=== PATIENT | female | born 1960 | race Caucasian/White ===

== ENCOUNTER → 2016-12-20 | Outpatient (CLI) | payer OTHER ==
[~2016-12-20] MED LIST: ASPI81TA28 PO; BUPRTAB51 PO; DIGO0.122 PO; FLUT0.15; LOSA1TAB PO; LSN5 PO; LSX20 PO; METO1TAB69 PO; POTA-335 PO; PRENTAB26 PO; WARF5TAB90 PO
[2016-12-20 15:37] LABS: URINE APPEARANCE CLEAR (CLEAR); URINE BILIRUBIN NEG (NEG); URINE COLOR YELLOW; URINE NITRITE NEG (NEG); URINE PH 5.5 (4.5-7.5); URINE SPECIFIC GRAVITY 1.005 (1.000-1.030); UROBILINOGEN NEG (NEG)
[2016-12-20 15:43] LABS: MANUAL MICROSCOPIC REQUIRED? NO; REVIEW REQ? NO
== END | disposition home or self-care (01) ==
LOC: C.LAB 14:08
PROVIDERS: ATTEND Physician Assistant
DX: R30.0 Dysuria (principal)

== ENCOUNTER → 2017-04-03 | Outpatient (CLI) | payer OTHER ==
--- NOTE | 2017-04-03 16:31 | DIAGNOSTIC IMAGING REPORT ---
(CHEST) THORAX WITHOUT CLINICAL HISTORY: 56 years-old Female presenting with PULMONARY NODULE. TECHNIQUE: Multidetector CT imaging of the chest was obtained without use of intravenous contrast. COMPARISON: 01/19/2016. FINDINGS: Tow Operator topogram demonstrates a left-sided pacer with lead to the right ventricular apex. Prosthetic tricuspid and mitral valves. Intact median sternotomy wires. On soft tissue windows, normal thyroid and thoracic inlet. No axillary lymphadenopathy. Stable mildly prominent mediastinal lymph nodes, the largest measuring up to 11 mm in short axis. Evaluation for hilar lymphadenopathy is limited without the use of intravenous contrast. Heart size normal. Trace coronary artery calcification. No pericardial or pleural effusion. Nodular thickening of the left adrenal gland unchanged. Left upper outer quadrant right breast mass also stable in appearance and size (series 2 image 24). On lung windows, mild apical predominant emphysema noted. Triangular solid 3-4 mm subpleural nodule in the posterior right lower lobe (series 2 image 34), which is unchanged from prior. Few scattered punctate nodules bilaterally. Additional punctate nodule in the anterior right upper lobe (series 2 image 14). Subpleural nodular opacity in the lingula likely scarring and stable from prior. No other focal infiltrate or pulmonary nodule. Airways patent. On bone windows, normal osseous structures noted. IMPRESSION: 1. Stable mildly prominent mediastinal lymph nodes, which are likely benign. 2. Stable solid 4 mm nodule within the right lower lobe. This may represent unencapsulated lymphoid tissue. Given stability over 12 months, no further follow-up is warranted per Mary Society 2017 recommendations. 3. Emphysema. Electronically signed by: Noble Sawyer 04/03/2017 4:30 PM Dictated Date/Time: 04/03/2017 4:12 PM
== END | disposition home or self-care (01) ==
LOC: C.CTS 15:59
PROVIDERS: ATTEND Internal Medicine Pulmonary Disease
DX: J43.9 Emphysema, unspecified (principal); R91.1 Solitary pulmonary nodule

== ENCOUNTER → 2017-06-27 | Outpatient (CLI) | payer OTHER ==
--- NOTE | 2017-06-30 12:36 | MAMMOGRAPHY REPORT ---
BILATERAL DIGITAL SCREENING MAMMOGRAM TOMOSYNTHESIS WITH CAD: 06/27/2017 CLINICAL HISTORY: Routine screening. Patient has no complaints. TECHNIQUE: Breast tomosynthesis in addition to standard 2D mammography was performed. Current study was also evaluated with a Computer Aided Detection (CAD) system. COMPARISON: Comparison is made to exams dated: 06/20/2016 mammogram, 05/12/2015 mammogram, and 08/02/20 09 mammogram - [facility]. BREAST COMPOSITION: The tissue of both breasts is heterogeneously dense, which may obscure small mas ses. FINDINGS: No suspicious masses, calcifications, or areas of architectural distortion are noted in ei ther breast. There has been no significant interval change compared to prior exams. Circumscribed 12 mm mass in the left upper outer quadrant is not significantly changed dating back to the 2008 exam. Asymmetry within the right superior posterior breast on the MLO view appears stable compared to the 2015 and 2008 exams, and has the appearance of normal fibroglandular tissue on the tomosynthesis imag es. IMPRESSION: ACR BI-RADS CATEGORY 2: BENIGN There is no mammographic evidence of malignancy. A 1 year screening mammogram is recommended. The pa tient will receive written notification of the results. Approximately 10% of breast cancers are not detected with mammography. A negative mammographic report should not delay biopsy if a clinically suggestive mass is present. Kamla Greene M.D. ah/:06/27/2017 15:42:26 Irrigation Equipment Remover: Desiree MERCADO(Leny)(Romana)(BD), [facility] letter sent: Normal 1/2 BI-RADS Code: ACR BI-RADS Category 2: Benign
== END | disposition home or self-care (01) ==
LOC: C.MAMM 15:05
PROVIDERS: ATTEND Internal Medicine
DX: Z12.31 Encounter for screening mammogram for malignant neoplasm of breast (principal)

== ENCOUNTER 2020-07-30 13:59 | Observation (INO) ==
[2020-07-30] MEDS ORDERED: MoRPHine SULFATE 4 MG/ML 1 ML CARP\\VIAL IV PRN (14:29)
[2020-07-30] MEDS ORDERED: ONDANSETRON INJ 2 MG/ML 2 ML VIAL IV STA (14:29)
[2020-07-30] MEDS ORDERED: SODIUM CHLORIDE 0.9% 500 ML IV ONE (14:29)
[2020-07-30] MEDS ORDERED: IOVERSOL 100ml IV ONE (14:42)
--- NOTE | 2020-07-30 14:51 | Emergency Department Note ---
Impression & Plan Fall, Right-sided chest pain, Right rib fracture, Coagulopathy ED Provider Note NAME: JESÚS DONG AGE: 59 SEX: F : 1960 ARRIVES VIA: Walk-In INFORMANT: [Patient] ED PROVIDER(S): [Jeff Rutledge MD] CHIEF COMPLAINT: Fall HISTORY OF PRESENT ILLNESS: The patient is a 59-year-old female who states that about an hour or so ago she was standing on a chair when she lost her balance and fell. She fell about 3 feet landing on the arm of the chair. Her right ribs hit the chair arm. There was no loss of consciousness, she did not hit her head. She has no headache, neck pain or back pain. No abdominal pain. There is a small bruise to the right anterior wrist and the right anterior knee but the bones themselves, the joints themselves feel fine. She is able to ambulate. The patient complains of severe right lateral rib pain when she moves or takes of breath, although, she is not short of breath. Of note, she is on Coumadin for a history of A. fib. REVIEW OF SYSTEMS: See HPI for pertinent positives and negatives. A total of ten systems were reviewed and were otherwise negative. PMHx/PSHx: See Below SOCIAL HISTORY: See Below. PHYSICAL EXAM: GENERAL: Patient is in mild distress from pain. HEENT: No acute trauma, normocephalic atraumatic, mucous membranes moist, no nasal congestion, no scleral icterus. NECK: No stridor, no adenopathy, nontender posterior C-spine, trachea is midline. LUNGS: Clear to auscultation bilaterally, no wheeze, no rhonchi, breath sounds equal. Chest: Tender over the right lateral chest wall, no contusion. HEART: Without murmurs gallops or rubs, irregular rhythm, normal rate. ABDOMEN: Soft, nontender, bowel sounds positive, no hernias, no peritonitis. No obvious contusions. EXTREMITIES: No cyanosis or significant edema, full range of motion of all the joints without pain or difficulty. The patient has a contusion forming to the anterior aspect of the right wrist. There is a small contusion to the right anterior knee. Movement of the joints of the extremities causes no pain. There is no focal bony discomfort with palpation of the right wrist or right knee. NEUROLOGIC: Oriented x 3, no acute motor or sensory deficits, no focal weakness. SKIN: No rash, no jaundice, no diaphoresis. Back: Nontender thoracic or lumbar spine. DIFFERENTIAL DIAGNOSIS: Fracture, dislocation, contusion, intra-abdominal, pneumothorax, intrathoracic, intracranial, neurologic, compartment syndrome, rhabdomyolysis, as well as other pathologies. EMERGENCY DEPARTMENT COURSE/PROCEDURES: MEDICAL DECISION MAKING: There is a slight leukocytosis at 12,000, this certainly could be from her pain. There is a normal hemoglobin. There is a normal platelet count. INR is 2.8, consistent with her Coumadin use. No significant electrolyte abnormality or kidney failure. No liver enzyme elevation. Urinalysis does not show any evidence for hematuria. Chest film did not show any pneumothorax or obvious rib fracture. Brain CT showed no acute bleed or mass-effect. Chest and abdominal CT scans were performed, there are at least 3 right-sided rib fractures. There is no pneumothorax or pulmonary contusion. No solid organ injury within the abdomen or pelvis. On my exam, I found no evidence for significant injury to her extremities. A few extremity contusions were noted. The patient received IV morphine for pain, IV Zofran for nausea. She was given IV saline, 500 cc. Patient is in quite a bit of discomfort. She is on Coumadin. She has at least 3 rib fractures on the right. At this point, hospitalization for pain control and possibly rehab is warranted. The patient does not feel comfortable with discharge home. I did speak with case management, the on-call hospitalist was consulted. It does appear that her injury complex is isolated to the right chest wall. Past Med/Surg History Medical History Atrial fibrillation Pacemaker Surgical History H/O mitral valve replacement with mechanical valve Social History Smoking Status: Current every day smoker Feels Safe at Home: Yes Allergies Allergies Allergy/AdvReac Type Severity Reaction Status Date / Time lisinopril Allergy Unknown Cough Verified 03/21/20 15:54 Home Meds Home Medications Medication Instructions Recorded Confirmed amoxicillin 500 mg tablet 2,000 mg PO ONCE PRN #4 tab 05/04/19 03/21/20 aspirin 81 mg chewable tablet 1 tab PO DAILY tab 05/04/19 03/21/20 bupropion HCl 300 mg 24 hr tablet, 300 mg PO DAILY tab 05/04/19 03/21/20 extended release digoxin 250 mcg (0.25 mg) tablet 250 mcg PO DAILY tab 05/04/19 03/21/20 fluticasone propionate 50 2 sprays INTRANASAL DAILY gm 05/04/19 03/21/20 mcg/actuation nasal spray,suspension furosemide 20 mg tablet 20 mg PO DAILY #30 tab 05/04/19 03/21/20 metoprolol succinate 100 mg 100 mg PO BID #180 tab 05/04/19 03/21/20 tablet,extended release 24 hr potassium chloride 20 mEq 20 meq PO DAILY #90 tab 05/04/19 03/21/20 tablet,extended release warfarin 5 mg tablet 5 mg PO DAILY #45 tab 05/04/19 07/28/20 Previous Rx's Medication Instructions Recorded atorvastatin 40 mg tablet 40 mg PO DAILY #90 tab 07/15/19 Results & Data (ED) Vital Signs Vital Signs - 24 hr 07/30/20 14:01 07/30/20 14:57 Temperature 36.5 C Temperature Source Oral Pulse Rate 73 78 Pulse Rhythm Regular Pulse Strength Normal Respiratory Rate 18 16 Respiratory Effort / Characteristics Non-Labored Spontaneous Respiratory Depth Normal Respiratory Pattern Regular Blood Pressure 138/85 Blood Pressure Mean 102 Blood Pressure Position Sitting Pulse Oximetry 93 Oxygen Delivery Method Room Air Room Air Sepsis Recent Fever Within 48 Hours No Sepsis New/Unexplained Change in Mental Status N/A Sepsis Action Taken by Nursing No Action Required Home Medications Current Medication List: was personally reviewed by me Laboratory Data Attestation: I reviewed the patient's lab results. Result diagrams: 07/30/20 14:55 07/30/20 14:55 Lab Results 07/30/20 07/30/20 07/30/20 Range/Units 14:55 14:55 14:55 WBC 12.04 H (4.8-10.8) K/uL RBC 4.65 (4.2-5.4) M/uL Hgb 14.4 (12.0-16.0) g/dL Hct 44.0 (37-47) % MCV 94.6 (80-100) fL MCH 31.0 (25-34) pg MCHC 32.7 (32-36) g/dL RDW Std Deviation 46.3 (36.4-46.3) fL RDW Coeff of Valentín 13.6 (11.5-14.5) % Plt Count 296 (130-400) K/uL MPV 11.1 H (7.4-10.4) fL PT 27.6 H (9.0-12.0) Seconds INR 2.8 H (0.9-1.1) APTT 33.7 H (21.0-31.0) Seconds PTT Ratio 1.2 Sodium 139 (136-145) mmol/L Potassium 4.1 (3.5-5.1) mmol/L Chloride 108 H (98-107) mmol/L Carbon Dioxide 26 (21-32) mmol/L Anion Gap 5.0 (3-11) BUN 13 (7-18) mg/dl Creatinine 0.93 (0.6-1.2) mg/dl Est Cr Clr Drug Dosing 62.9 ml/min Est GFR ( Amer) 78.5 Est GFR (Non-Af Amer) 67.7 BUN/Creatinine Ratio 13.4 (10-20) Glucose 80 (70-99) mg/dl Calcium 10.0 (8.5-10.1) mg/dl Total Bilirubin 0.3 (0.2-1) mg/dl AST 25 (15-37) U/L ALT 26 (12-78) U/L Alkaline Phosphatase 126 H (45-117) U/L Total Protein 7.5 (6.4-8.2) gm/dl Albumin 3.6 (3.4-5.0) gm/dl Globulin 3.9 (2.5-4.0) gm/dl Albumin/Globulin Ratio 0.9 (0.9-2) Urine Color Urine Appearance (Clear) Urine pH (4.5-7.5) Ur Specific Rayle (1.000-1.030) Urine Protein (Negative) Urine Glucose (UA) (Negative) Urine Ketones (Negative) Urine Blood (Negative) Urine Nitrite (Negative) Urine Bilirubin (Negative) Urine Urobilinogen (Negative) Ur Leukocyte Esterase (Negative) Urine WBC (Auto) (0-5) /hpf Urine RBC (Auto) (0-4) /hpf U Hyaline Cast (Auto) (0-5) /lpf U Epithel Cells (Auto) (0-5) /lpf Urine Bacteria (Auto) (Negative) 07/30/20 Range/Units 15:55 WBC (4.8-10.8) K/uL RBC (4.2-5.4) M/uL Hgb (12.0-16.0) g/dL Hct (37-47) % MCV (80-100) fL MCH (25-34) pg MCHC (32-36) g/dL RDW Std Deviation (36.4-46.3) fL RDW Coeff of Valentín (11.5-14.5) % Plt Count (130-400) K/uL MPV (7.4-10.4) fL PT (9.0-12.0) Seconds INR (0.9-1.1) APTT (21.0-31.0) Seconds PTT Ratio Sodium (136-145) mmol/L Potassium (3.5-5.1) mmol/L Chloride (98-107) mmol/L Carbon Dioxide (21-32) mmol/L Anion Gap (3-11) BUN (7-18) mg/dl Creatinine (0.6-1.2) mg/dl Est Cr Clr Drug Dosing ml/min Est GFR ( Amer) Est GFR (Non-Af Amer) BUN/Creatinine Ratio (10-20) Glucose (70-99) mg/dl Calcium (8.5-10.1) mg/dl Total Bilirubin (0.2-1) mg/dl AST (15-37) U/L ALT (12-78) U/L Alkaline Phosphatase (45-117) U/L Total Protein (6.4-8.2) gm/dl Albumin (3.4-5.0) gm/dl Globulin (2.5-4.0) gm/dl Albumin/Globulin Ratio (0.9-2) Urine Color Yellow Urine Appearance Clear (Clear) Urine pH 6.5 (4.5-7.5) Ur Specific Rayle 1.033 H (1.000-1.030) Urine Protein Negative (Negative) Urine Glucose (UA) Negative (Negative) Urine Ketones Negative (Negative) Urine Blood Trace H (Negative) Urine Nitrite Negative (Negative) Urine Bilirubin Negative (Negative) Urine Urobilinogen Negative (Negative) Ur Leukocyte Esterase Negative (Negative) Urine WBC (Auto) 1-5 (0-5) /hpf Urine RBC (Auto) 0-4 (0-4) /hpf U Hyaline Cast (Auto) 0 (0-5) /lpf U Epithel Cells (Auto) 5-10 H (0-5) /lpf Urine Bacteria (Auto) Negative (Negative) Administered Medications Morphine Sulfate (Morphine Sulfate 4 Mg/Ml 1 Ml Carp\Vial) 4 mg IV Q20M PRN PRN Reason: Pain Stop: 08/13/20 14:28 Last Admin: 07/30/20 14:52 Dose: 4 mg Documented by: [id number] Discontinued Medications Sodium Chloride (Nss) 500 mls @ 999 mls/hr IV .Q31M ONE Stop: 07/30/20 14:59 Last Infusion: 07/30/20 15:28 Dose: 0 mls/hr Documented by: [id number] Admin: 07/30/20 14:51 Dose: 999 mls/hr Documented by: [id number] Ioversol (Ioversol 100ml) 93 ml IV ONCE ONE Stop: 07/30/20 14:43 Last Admin: 07/30/20 14:43 Dose: 93 ml Documented by: [id number] Ondansetron HCl (Ondansetron Inj 2 Mg/Ml 2 Ml Vial) 4 mg IV NOW STA Stop: 07/30/20 14:30 Last Admin: 07/30/20 14:52 Dose: 4 mg Documented by: [id number] Imaging Data Radiologist's Impression: XR chest 1V portable HISTORY: 59 years-old Female fall, rib injury on right acute right-sided rib pain status post fall COMPARISON: Chest radiograph 03/22/2016 TECHNIQUE: Portable upright AP view of the chest FINDINGS: Cardiomediastinal and hilar silhouettes are within normal limits. Prior median sternotomy with cardiac valvular prosthesis. Left subclavian pacer. No pneumothorax, pleural effusion, airspace consolidation or overt pulmonary edema. Bones of the chest appear grossly intact. IMPRESSION: No acute process. CT head/brain wo con CLINICAL HISTORY: 59 years-old Female with fall, coumadin. Acute head injury status post fall TECHNIQUE: Multiple axial CT images of the head were obtained without contrast. A dose lowering technique was utilized adhering to the principles of ALARA. COMPARISON: CT maxillofacial 09/07/2015 FINDINGS: No acute intracranial hemorrhage, midline shift, intracranial mass, hydrocephalus, territorial ischemia or abnormal extra-axial collection. Mild age-related involutional changes. The calvarium is intact. The paranasal sinuses, mastoid air cells, and middle ear cavities are clear. IMPRESSION: No acute intracranial abnormality. CHEST CT WITH CONTRAST; CT ABDOMEN AND PELVIS WITH IV CONTRAST ONLY CT DOSE: 1414.13 mGy.cm HISTORY: Acute right-sided chest and abdominal pain status post fall fall, ida n, coumadin TECHNIQUE: Multiaxial CT images of the chest, abdomen and pelvis were performed following the IV administration of 93 cc of Optiray 320. A dose lowering technique was utilized adhering to the principles of ALARA. COMPARISON: Chest CT 04/03/2017, CT abdomen and pelvis 03/17/2016 FINDINGS: CT CHEST: Unremarkable thyroid. Streak artifact from left subclavian pacer battery pack. Prior median sternotomy with mitral prosthesis. Moderate multichamber cardiomegaly. Moderate coronary artery calcifications. No thoracic aortic aneurysm. Moderate mixed plaque the abdominal aorta with patency of the imaged great vessels. The opacified pulmonary arterial tree is unremarkable without pulmonary embolus. Unremarkable thyroid. Nonspecific mildly enlarged 11 mm precarinal lymph node, unchanged and likely benign. No pneumothorax or pleural effusion. There is mild emphysema. There are numerous tiny upper lung zone prominent pulmonary nodules measuring up to 2-3 mm. These appear stable from comparison. 4 mm solid nodule of the basal right lower lobe is unchanged dating back to at least 2017 suggestive of benign etiology. Mild bronchial wall thickening suggests bronchitis. 2 mm calcified granuloma of the left lung apex. Airways appear patent. Soft tissues of the chest are unremarkable. Acute mildly displaced fracture of the anterior right seventh rib with subtle acute nondisplaced f ractures of the anterior right ninth and 10th ribs. CT ABDOMEN/PELVIS: There is no pneumatosis or pneumoperitoneum. Spleen, pancreas and right adrenal gland are unremarkable. Mild thickening of the left adrenal gland suggests hyperplasia, unchanged. The gallbladder and liver are also within normal limits. Patency of the hepatic and portal veins. Probable cyst of the inferior pole left kidney, 4 mm. Cortical lobulations of the superior pole right kidney with possible parenchymal scarring. Mild urinary bladder distention. Uterus and adnexa are unremarkable. No aneurysm. Retroaortic left renal vein. No adenopathy. There is no bowel obstruction or bowel wall thickening. Noninflamed appendix. S oft tissues are unremarkable. Moderate disc degeneration at L5-S1. IMPRESSION: 1. No acute intrathoracic, intra-abdominal or intrapelvic abnormality. 2. Acute mildly displaced fracture of the anterior right seventh rib with subtle acute nondisplaced fractures of the anterior right ninth and 10th ribs. No pneumothorax or acute solid organ injury. 3. Additional findings as above. Head Trauma GCS Score: 15 Discharge Plan Visit Data Chief Complaint: Rib Injury/Pain Stated Complaint: RT SIDED RIB PAIN S/P FALL ED Provider: Jeff Rutledge Discharge Problem: Fall, Right-sided chest pain, Right rib fracture, Coagulopathy Patient Disposition: Admitted As Inpatient Condition: Good Forms Stand Alone Forms: [facility], Virtual Emergency Department, Important Visit Information Prescriptions Prescriptions: No Action atorvastatin 40 mg tablet 40 mg PO DAILY Qty: 90 RF: 3 metoprolol succinate 100 mg tablet extended release 24 hr 100 mg PO BID Qty: 180 RF: 0 warfarin 5 mg tablet 5 mg PO DAILY Qty: 45 RF: 0 furosemide 20 mg tablet 20 mg PO DAILY Qty: 30 RF: 0 potassium chloride 20 mEq tablet extended release 20 meq PO DAILY Qty: 90 RF: 0 amoxicillin 500 mg tablet 2,000 mg PO ONCE PRN (Reason: DENTAL APPOINTMENT) Qty: 4 RF: 0 aspirin 81 mg tablet,chewable 1 tab PO DAILY RF: 0 digoxin 250 mcg tablet 250 mcg PO DAILY RF: 0 fluticasone propionate 50 mcg/actuation spray,suspension 2 sprays intranasal DAILY RF: 0 bupropion HCl 300 mg tablet extended release 24 hr 300 mg PO DAILY RF: 0 digoxin [Digitek] 125 mcg (0.125 mg) tablet 125 mcg PO DAILY RF: 0 Referrals Referrals: Lolis Plaza MD [Primary Care Provider] - Discharge Problem: Fall Qualifiers: Encounter type: initial encounter Qualified Code(s): W19.XXXA - Unspecified fall, initial encounter Right rib fracture Qualifiers: Encounter type: initial encounter Rib fracture type: multiple ribs Fracture type: closed Qualified Code(s): S22.41XA - Multiple fractures of ribs, right side, initial encounter for closed fracture
[2020-07-30 15:02] LABS: Hemoglobin 14.4 g/dL (12.0-16.0); Mean Corpuscular Hgb Conc 32.7 g/dL (32-36); Mean Corpuscular Volume 94.6 fL (80-100); Mean Platelet Volume 11.1 fL (7.4-10.4); Platelet Count 296 K/uL (130-400); RDW Coefficient of Variation 13.6 % (11.5-14.5); RDW Standard Deviation 46.3 fL (36.4-46.3); Red Blood Count 4.65 M/uL (4.2-5.4); White Blood Count 12.04 K/uL (4.8-10.8)
--- NOTE | 2020-07-30 15:12 | XRay Report ---
XR chest 1V portable HISTORY: 59 years-old Female fall, rib injury on right acute right-sided rib pain status post fall COMPARISON: Chest radiograph 03/22/2016 TECHNIQUE: Portable upright AP view of the chest FINDINGS: Cardiomediastinal and hilar silhouettes are within normal limits. Prior median sternotomy with cardia c valvular prosthesis. Left subclavian pacer. No pneumothorax, pleural effusion, airspace consolidati on or overt pulmonary edema. Bones of the chest appear grossly intact. IMPRESSION: No acute process. ACT 112: Negative or not required by law. The above report was generated using voice recognition software. It may contain grammatical, syntax o r spelling errors. Electronically signed by: Hay Xiong M.D. 07/30/2020 3:11 PM
[2020-07-30 15:16] LABS: INR 2.8 (0.9-1.1); Partial Thromboplastin Ratio 1.2; Partial Thromboplastin Time 33.7 Seconds (21.0-31.0); Prothrombin Time 27.6 Seconds (9.0-12.0)
[2020-07-30 15:18] LABS: Albumin Level 3.6 gm/dl (3.4-5.0); BUN Creatinine Ratio 13.4 (10-20); Creatinine Clr Calc Pharmacy 62.9 ml/min; Est GFR (African American) 78.5; Est GFR (Non-African American) 67.7; Potassium 4.1 mmol/L (3.5-5.1)
[2020-07-30 15:21] LABS: Albumin Globulin Ratio 0.9 (0.9-2); Bilirubin,Total 0.3 mg/dl (0.2-1); Globulin 3.9 gm/dl (2.5-4.0); Total Protein 7.5 gm/dl (6.4-8.2)
--- NOTE | 2020-07-30 15:43 | CT Scan Report ---
CT head/brain wo con CLINICAL HISTORY: 59 years-old Female with fall, coumadin. Acute head injury status post fall TECHNIQUE: Multiple axial CT images of the head were obtained without contrast. A dose lowering tech nique was utilized adhering to the principles of ALARA. COMPARISON: CT maxillofacial 09/07/2015 FINDINGS: No acute intracranial hemorrhage, midline shift, intracranial mass, hydrocephalus, territorial ischem ia or abnormal extra-axial collection. Mild age-related involutional changes. The calvarium is intact. The paranasal sinuses, mastoid air cells, and middle ear cavities are clear . IMPRESSION: No acute intracranial abnormality. ACT 112: Negative or not required by law. The above report was generated using voice recognition software. It may contain grammatical, syntax o r spelling errors. Electronically signed by: Hay Xiong M.D. 07/30/2020 3:42 PM
--- NOTE | 2020-07-30 16:04 | CT Scan Report ---
CHEST CT WITH CONTRAST; CT ABDOMEN AND PELVIS WITH IV CONTRAST ONLY CT DOSE: 1414.13 mGy.cm HISTORY: Acute right-sided chest and abdominal pain status post fall fall, pain, coumadin TECHNIQUE: Multiaxial CT images of the chest, abdomen and pelvis were performed following the IV admi nistration of 93 cc of Optiray 320. A dose lowering technique was utilized adhering to the principl es of MERLYN. COMPARISON: Chest CT 04/03/2017, CT abdomen and pelvis 03/17/2016 FINDINGS: CT CHEST: Unremarkable thyroid. Streak artifact from left subclavian pacer battery pack. Prior median sternotom y with mitral prosthesis. Moderate multichamber cardiomegaly. Moderate coronary artery calcifications . No thoracic aortic aneurysm. Moderate mixed plaque the abdominal aorta with patency of the imaged g reat vessels. The opacified pulmonary arterial tree is unremarkable without pulmonary embolus. Unremarkable thyroid. Nonspecific mildly enlarged 11 mm precarinal lymph node, unchanged and likely b enign. No pneumothorax or pleural effusion. There is mild emphysema. There are numerous tiny upper shantanu ng zone prominent pulmonary nodules measuring up to 2-3 mm. These appear stable from comparison. 4 mm solid nodule of the basal right lower lobe is unchanged dating back to at least 2017 suggestive of b enign etiology. Mild bronchial wall thickening suggests bronchitis. 2 mm calcified granuloma of the l eft lung apex. Airways appear patent. Soft tissues of the chest are unremarkable. Acute mildly displa eric fracture of the anterior right seventh rib with subtle acute nondisplaced fractures of the anteri or right ninth and 10th ribs. CT ABDOMEN/PELVIS: There is no pneumatosis or pneumoperitoneum. Spleen, pancreas and right adrenal gland are unremarkabl e. Mild thickening of the left adrenal gland suggests hyperplasia, unchanged. The gallbladder and marquise er are also within normal limits. Patency of the hepatic and portal veins. Probable cyst of the infer ior pole left kidney, 4 mm. Cortical lobulations of the superior pole right kidney with possible pare nchymal scarring. Mild urinary bladder distention. Uterus and adnexa are unremarkable. No aneurysm. R etroaortic left renal vein. No adenopathy. There is no bowel obstruction or bowel wall thickening. Noninflamed appendix. Soft tissues are unrema rkable. Moderate disc degeneration at L5-S1. IMPRESSION: 1. No acute intrathoracic, intra-abdominal or intrapelvic abnormality. 2. Acute mildly displaced fracture of the anterior right seventh rib with subtle acute nondisplaced f ractures of the anterior right ninth and 10th ribs. No pneumothorax or acute solid organ injury. 3. Additional findings as above. ACT 112: Negative or not required by law. Electronically signed by: Hay Xiong M.D. 07/30/2020 4:03 PM
[2020-07-30 16:13] LABS: Appearance Urine Clear (Clear); Bacteria Urine Automated Negative (Negative); Bilirubin Urine Negative (Negative); Blood Urine Trace (Negative); Cast Urine Automated 0 /lpf (0-5); Color Urine Yellow; Glucose Urine UA Negative (Negative); Ketones Urine Negative (Negative); Leukocyte Esterase Urine Negative (Negative); Nitrite Urine Negative (Negative); Protein Urine Negative (Negative); RBC Urine Automated 0-4 /hpf (0-4); Specific Gravity Urine 1.033 (1.000-1.030); Urobilinogen Urine Negative (Negative); pH Urine 6.5 (4.5-7.5)
[2020-07-30] MEDS ORDERED: oxyCODONE IR HOME PACK PO ONE (16:47)
--- NOTE | 2020-07-30 17:55 | History & Physical Report ---
Date of Service July 30, 2020 Assessment & Plan (1) Right rib fracture: Mechanical fall from a chair CT of the chest revealed mildly displaced fracture involving the right seventh, ninth and 10th ribs without any hemo and pneumothorax Has been having severe pain with any movement of the right upper extremity and with deep breathing We will continue with intravenous morphine for pain control Incentive spirometry PT and OT evaluation (2) Fall: Mechanical fall (3) CHF due to valvular disease: No signs and/or symptoms of acute CHF Continue current dose of diuretic (4) Rheumatic mitral valve disease: (5) H/O mitral valve replacement with mechanical valve: Story of mechanical mitral valve replacement Continue anticoagulation (6) Atrial fibrillation: Status post pacemaker placement Rate is controlled We will continue current medications DVT prophylaxis Has been on Coumadin and the INR is therapeutic CODE STATUS Full (7) Pacemaker: History of Present Illness Chief Complaint: Fall from a chair while reaching an object on it overhead cupboard injuring right-sided ribs Primary Care Provider: Lolis Plaza MD She is a 59-year-old female with significant past medical history of CAD, chronic diastolic heart failure, rheumatic heart disease with history of mitral valve replacement, atrial fibrillation status post pacemaker on Coumadin and depression apparently had a fall from a chair while reaching an object from an overhead cupboard. She fell on the right side and injured right lateral chest wall mainly. She could manage to get up from the fall and there is no loss of consciousness. She denies any recent fever and/or chills, any chest pain, palpitation or shortness of breath. She denies any abdominal pain, nausea and or vomiting or any problem with urine and her bowel habit. She does not have any increasing leg swelling. Denies any headache and or blurred vision or any numbness and/or tingling involving any of the extremities. CT of the chest showed acute mildly displaced fractures involving the right anterior seventh, 9 and 10th ribs without any pneumo thorax or any solid organ injury. She was having extreme pain with any movement of the right upper extremity. She was admitted for pain control. Allergies Allergy/AdvReac Type Severity Reaction Status Date / Time lisinopril Allergy Unknown Cough Verified 07/30/20 17:43 Home Medications Home Medications Medication Instructions Recorded Confirmed Type amoxicillin 500 mg tablet 2,000 mg PO ONCE PRN #4 tab 05/04/19 03/21/20 History aspirin 81 mg chewable tablet 1 tab PO DAILY tab 05/04/19 07/30/20 History bupropion HCl 300 mg 24 hr tablet, 300 mg PO DAILY tab 05/04/19 07/30/20 History extended release furosemide 20 mg tablet 20 mg PO 6XWK #30 tab 05/04/19 07/30/20 History metoprolol succinate 100 mg 100 mg PO BID #180 tab 05/04/19 07/30/20 History tablet,extended release 24 hr potassium chloride 20 mEq 20 meq PO 6XWK #90 tab 05/04/19 07/30/20 History tablet,extended release warfarin 5 mg tablet 5 mg PO 5XWK #45 tab 05/04/19 07/30/20 History acetaminophen [Tylenol Arthritis] 650 mg PO Q8H PRN 07/30/20 07/30/20 History atorvastatin 40 mg PO QPM 07/30/20 07/30/20 History bupropion HCl 150 mg PO DAILY 07/30/20 07/30/20 History digoxin [Digitek] 125 mcg PO DAILY 07/30/20 07/30/20 History furosemide 40 mg PO WK 07/30/20 07/30/20 History losartan 25 mg PO QPM 07/30/20 07/30/20 History potassium chloride 40 meq PO WK 07/30/20 07/30/20 History warfarin 2.5 mg PO 2XWK 07/30/20 07/30/20 History Past Med/Surg History Medical History Atrial fibrillation Pacemaker Surgical History H/O mitral valve replacement with mechanical valve Social History Smoking Status: Current every day smoker Feels Safe at Home: Yes Review of Systems Review of Systems: All systems reviewed & are unremarkable except as noted in HPI & below Physical Exam Physical Exam: Lying in bed with some discomfort especially over right lateral chest wall Constitutional: well developed, well nourished and + obese Eyes: PERRL, conjunctivae normal, anicteric sclerae ENMT: external ear and nose normal, oropharynx normal Neck: trachea midline, no thyromegaly Respiratory: no respiratory distress Auscultation: lungs clear to auscultation bilaterally and + diminished lung sounds Cardiovascular: Rate/Rhythm: + irregularly irregular Heart Sounds: + murmur Gastrointestinal (Abdomen): Inspection/Auscultation: normal bowel sounds; abdomen not distended Percussion/Palpation: abdomen soft; abdomen nontender Musculoskeletal: Extremities: + upper extremity abnormal to inspection (Any movement of the right upper extremity produced pain in ribs) Neurologic: ,Aler awake and oriented x3 .t Psychiatric: A+Ox3, euthymic affect Lymphatic: no cervical or axillary lymphadenopathy Results & Data Results & Data ([facility]) Vital Signs (Past 12 Hours) Vital Signs Temp Pulse Resp BP Pulse Ox 07/30/20 15:43 72 17 132/71 97 07/30/20 15:42 68 14 07/30/20 15:01 85 18 93 07/30/20 14:57 78 16 93 07/30/20 14:01 36.5 C 73 18 138/85 Laboratory Results Short CBC 07/30/20 Range/Units 14:55 WBC 12.04 H (4.8-10.8) K/uL Hgb 14.4 (12.0-16.0) g/dL Hct 44.0 (37-47) % Plt Count 296 (130-400) K/uL BMP 07/30/20 14:55 Sodium 139 Potassium 4.1 Chloride 108 H Carbon Dioxide 26 BUN 13 Creatinine 0.93 Glucose 80 Calcium 10.0 Liver Function 07/30/20 Range/Units 14:55 Total Bilirubin 0.3 (0.2-1) mg/dl AST 25 (15-37) U/L ALT 26 (12-78) U/L Alkaline Phosphatase 126 H (45-117) U/L Albumin 3.6 (3.4-5.0) gm/dl Urine 07/30/20 Range/Units 15:55 Urine Color Yellow Urine Appearance Clear (Clear) Urine pH 6.5 (4.5-7.5) Ur Specific [place] 1.033 H (1.000-1.030) Urine Protein Negative (Negative) Urine Glucose (UA) Negative (Negative) Medications Administered Current Inpatient Medications Morphine Sulfate (Morphine Sulfate 4 Mg/Ml 1 Ml Carp\Vial) 4 mg IV Q20M PRN PRN Reason: Pain Stop: 08/13/20 14:28 Last Admin: 07/30/20 14:52 Dose: 4 mg Documented by: Code Status & VTE Plan VTE Prophylaxis Plan VTE Prophylaxis will be ordered: Yes (1) Right rib fracture Encounter type: initial encounter Fracture type: closed Rib fracture type: multiple ribs Qualified Code(s): S22.41XA - Multiple fractures of ribs, right side, initial encounter for closed fracture (2) Fall Encounter type: initial encounter Qualified Code(s): W19.XXXA - Unspecified fall, initial encounter
[2020-07-30] MEDS ORDERED: WARFARIN SOD 5 MG TAB PO SCH (19:04)
[2020-07-30] MEDS: MoRPHine SULFATE 4 MG/ML 1 ML CARP\\VIAL IV PRN (20:14)
[2020-07-30] MEDS: METOPROLOL SUCC 50MG EXT REL TAB PO SCH (20:20)
[2020-07-31] MEDS: MoRPHine SULFATE 4 MG/ML 1 ML CARP\\VIAL IV PRN (03:52)
[2020-07-31 07:44] LABS: Basophils # (auto) 0.03 K/uL (0-0.2); Basophils % (auto) 0.3 %; Eosinophils # (auto) 0.13 K/uL (0-0.5); Eosinophils % (auto) 1.1 %; Hematocrit (blood only) 40.8 % (37-47); Immature Granulocytes # (auto) 0.03 K/uL (0.00-0.02); Immature Granulocytes % (auto) 0.3 %; Lymphocytes # (auto) 1.58 K/uL (1.2-3.4); Lymphocytes % (auto) 13.9 %; Mean Corpuscular Hemoglobin 30.7 pg (25-34); Mean Corpuscular Hgb Conc 31.9 g/dL (32-36); Mean Corpuscular Volume 96.2 fL (80-100); Mean Platelet Volume 10.7 fL (7.4-10.4); Monocytes # (auto) 0.73 K/uL (0.11-0.59); Monocytes % (auto) 6.4 %; Neutrophils # (auto) 8.89 K/uL (1.4-6.5); Platelet Count 248 K/uL (130-400); Red Blood Count 4.24 M/uL (4.2-5.4); White Blood Count 11.39 K/uL (4.8-10.8)
[2020-07-31 07:57] LABS: INR 2.2 (0.9-1.1); Prothrombin Time 22.6 Seconds (9.0-12.0)
[2020-07-31 08:10] LABS: BUN Creatinine Ratio 15.8 (10-20); Calcium 9.3 mg/dl (8.5-10.1); Creatinine Clr Calc Pharmacy 62.5 ml/min; Est GFR (African American) 78.5; Est GFR (Non-African American) 67.7; Potassium 4.3 mmol/L (3.5-5.1)
[2020-07-31] MEDS: METOPROLOL SUCC 50MG EXT REL TAB PO SCH ×2 (08:46→20:07)
[2020-07-31] MEDS: POTASSIUM CHLORIDE 20 MEQ TABCR PO SCH (08:46)
[2020-07-31] MEDS: buPROPion XL 300 MG TABCR PO SCH (08:47)
[2020-07-31] MEDS: ATORVASTATIN 40 MG TAB PO SCH (08:47)
[2020-07-31] MEDS: FLUTICASONE PROPIONATE NA SPR 16 GM BTL SCH (08:47)
[2020-07-31] MEDS: buPROPion XL 150 MG TABCR PO SCH (08:48)
[2020-07-31] MEDS: ASPIRIN 81 MG ECTAB PO SCH (08:48)
[2020-07-31] MEDS ORDERED: FUROSEMIDE 20 MG TAB PO SCH (09:00)
--- NOTE | 2020-07-31 13:41 | Hospitalist Progress Note ---
Date of Service July 31, 2020 Assessment & Plan (1) Right rib fracture: Multiple closed right rib fractures from mechanical fall and trauma -as per 07/30/2020 ED notes "The patient is a 59-year-old female who states that about an hour or so ago she was standing on a chair when she lost her balance and fell. She fell about 3 feet landing on the arm of the chair. Her right ribs hit the chair arm. There was no loss of consciousness, she did not hit her head." -CT chest 07/30/2020 Acute mildly displaced fracture of the anterior right seventh rib with subtle acute nondisplaced fractures of the anterior right ninth and 10th ribs. 07/31/2020: Patient has been having a lot of nausea likely from empiric 4 mg dosages of IV morphine ordered by admitting physician at the beginning hospitalization which started on 07/30/2020 in regards to treating pain of rib fractures. Currently patient nausea improving as the day goes by but she is still uncomfortable with nausea and also right lower rib pain. She is breathing on room air and oxygenating well. She has been ambulatory. She is encouraged to use the incentive spirometer but she also reports more rib pain when taking deep breaths. -stop morphine because of excessive nausea side effects -continue prn acetaminophen or prn oxycodone for now for pain control, prn zofran for nausea, give bowel regimen (2) Fall: Mechanical fall as above with right rib fractures (3) CHF due to valvular disease: Coronary artery disease without angina pectoris -Continue home dose furosemide with potassium supplements, continue aspirin and atorvastatin (4) Rheumatic mitral valve disease: -in the past (5) H/O mitral valve replacement with mechanical valve: -History of mechanical mitral valve replacement -Continue anticoagulation with coumadin (6) Atrial fibrillation: Status post pacemaker placement in the past -continue home dose metoprolol, digoxin History of Depression -continue home dose buproprion DVT prophylaxis: on coumadin CODE STATUS: Full (7) Pacemaker: Admission and Anticipated Discharge Date Admission Date: July 30, 2020 Subjective Patient has been having a lot of nausea likely from empiric 4 mg dosages of IV morphine ordered by admitting physician at the beginning hospitalization which started on 07/30/2020 in regards to treating pain of rib fractures. Currently patient nausea improving as the day goes by but she is still uncomfortable with nausea and also right lower rib pain. She is breathing on room air and oxygenating well. She has been ambulatory. She is encouraged to use the incentive spirometer but she also reports more rib pain when taking deep breaths. Review of Systems Review of Systems: All systems reviewed & are unremarkable except as noted in Subjective Physical Exam Constitutional: cooperative Eyes: PERRL, conjunctivae normal, anicteric sclerae EOM intact bilaterally ENMT: external ear and nose normal, oropharynx normal Neck: normal visual inspection Respiratory: normal respiratory effort Cardiovascular: Rate/Rhythm: regular rhythm and + bradycardic Gastrointestinal (Abdomen): normal bowel sounds, soft, nontender, no hepatosplenomegaly Musculoskeletal: Head/Neck/Chest: normocephalic and head atraumatic Skin: some ecchymosis of right ribs Neurologic: PERRL, EOMI, accommodation nl, no face palsy, no dysarthria moves all extremities Psychiatric: A+Ox3, euthymic affect Results & Data Results & Data ([facility]) Vital Signs (Past 12 Hours) Vital Signs Temp Pulse Pulse Resp BP Pulse Ox 07/31/20 11:29 36.4 C L 67 18 103/63 95 07/31/20 07:51 36.9 C 70 20 102/66 96 07/31/20 07:00 80 07/31/20 04:09 36.5 C 80 20 107/50 L 90 (1) Right rib fracture Encounter type: initial encounter Fracture type: closed Rib fracture type: multiple ribs Qualified Code(s): S22.41XA - Multiple fractures of ribs, right side, initial encounter for closed fracture (2) Fall Encounter type: initial encounter Qualified Code(s): W19.XXXA - Unspecified fall, initial encounter
[2020-07-31] MEDS ORDERED: POLYETHYLENE (MIRALAX) 17 GM PACK PO PRN (14:49)
[2020-07-31] MEDS: ONDANSETRON INJ 2 MG/ML 2 ML VIAL IV PRN (15:12)
[2020-07-31] MEDS ORDERED: DIGOXIN 0.125 MG TAB PO SCH (16:00)
[2020-07-31] MEDS ORDERED: WARFARIN SOD 2.5 MG TAB PO SCH (16:00)
[2020-07-31] MEDS: SENNA 8.6 MG TAB PO SCH (16:15)
[2020-07-31] MEDS: oxyCODONE HCL IR 5 MG TAB (IMMEDIATE RELEASE) PO PRN (20:05)
[2020-08-01] MEDS ORDERED: ACETAMINOPHEN 325 MG TAB PO STA (04:00)
[2020-08-01 04:40] VITALS: O2SAT 92
[2020-08-01 07:50] LABS: Basophils # (auto) 0.02 K/uL (0-0.2); Basophils % (auto) 0.2 %; Eosinophils # (auto) 0.09 K/uL (0-0.5); Eosinophils % (auto) 0.8 %; Hematocrit (blood only) 43.9 % (37-47); Immature Granulocytes # (auto) 0.02 K/uL (0.00-0.02); Immature Granulocytes % (auto) 0.2 %; Lymphocytes # (auto) 1.89 K/uL (1.2-3.4); Lymphocytes % (auto) 16.1 %; Mean Corpuscular Hemoglobin 30.7 pg (25-34); Mean Corpuscular Hgb Conc 31.9 g/dL (32-36); Mean Corpuscular Volume 96.3 fL (80-100); Mean Platelet Volume 11.5 fL (7.4-10.4); Monocytes # (auto) 0.88 K/uL (0.11-0.59); Monocytes % (auto) 7.5 %; Neutrophils # (auto) 8.87 K/uL (1.4-6.5); Neutrophils % (auto) 75.2 %; Platelet Count 280 K/uL (130-400); RDW Coefficient of Variation 13.9 % (11.5-14.5); RDW Standard Deviation 48.8 fL (36.4-46.3); Red Blood Count 4.56 M/uL (4.2-5.4); White Blood Count 11.77 K/uL (4.8-10.8)
[2020-08-01 07:59] LABS: INR 3.4 (0.9-1.1); Prothrombin Time 33.7 Seconds (9.0-12.0)
[2020-08-01 08:03] VITALS: TEMP 98.1
[2020-08-01] MEDS: METOPROLOL SUCC 50MG EXT REL TAB PO SCH (08:51)
[2020-08-01] MEDS: buPROPion XL 150 MG TABCR PO SCH (08:51)
[2020-08-01] MEDS: buPROPion XL 300 MG TABCR PO SCH (08:51)
[2020-08-01] MEDS: ASPIRIN 81 MG ECTAB PO SCH (08:52)
[2020-08-01] MEDS: POTASSIUM CHLORIDE 20 MEQ TABCR PO SCH (08:52)
[2020-08-01] MEDS: SENNA 8.6 MG TAB PO SCH (08:53)
[2020-08-01] MEDS: FLUTICASONE PROPIONATE NA SPR 16 GM BTL SCH (08:53)
[2020-08-01] MEDS: ATORVASTATIN 40 MG TAB PO SCH (08:58)
[2020-08-01] MEDS ORDERED: POTASSIUM CHLORIDE 20 MEQ TABCR PO SCH (09:00)
[2020-08-01] MEDS ORDERED: FUROSEMIDE 40 MG TAB PO SCH (09:00)
[2020-08-01 11:09] VITALS: BP 149/81
--- NOTE | 2020-08-01 11:44 | Hospitalist Progress Note ---
Date of Service August 01, 2020 Assessment & Plan (1) Right rib fracture: Multiple closed right rib fractures from mechanical fall and trauma -as per 07/30/2020 ED notes "The patient is a 59-year-old female who states that about an hour or so ago she was standing on a chair when she lost her balance and fell. She fell about 3 feet landing on the arm of the chair. Her right ribs hit the chair arm. There was no loss of consciousness, she did not hit her head." -CT chest 07/30/2020 Acute mildly displaced fracture of the anterior right seventh rib with subtle acute nondisplaced fractures of the anterior right ninth and 10th ribs. 07/31/2020: Patient has been having a lot of nausea likely from empiric 4 mg dosages of IV morphine ordered by admitting physician at the beginning hospitalization which started on 07/30/2020 in regards to treating pain of rib fractures. Currently patient nausea improving as the day goes by but she is still uncomfortable with nausea and also right lower rib pain. She is breathing on room air and oxygenating well. She has been ambulatory. She is encouraged to use the incentive spirometer but she also reports more rib pain when taking deep breaths. -07/31/2020 stopped morphine because of excessive nausea side effects, continued prn acetaminophen or prn oxycodone for now for pain control, prn zofran for nausea, give bowel regimen 08/01/2020: Patient no longer has nausea and does not require additional pain medications. Patient ready for discharge. Discussed with her the discharge plans and followups discharge to home discharge medication of acetaminophen 325 mg every 4 hours as needed for pain sent electronically to [facility] [address] [place] [address] INR is 3.4 on 08/01/2020. Patient advised to hold off home dose coumadin on 08/01/2020. Patient can go get INR check at coumadin clinic on 08/02/2020 versus continuing palmer dose coumadin and follow up with primary care doctor for INR check Patient should follow up with primary care doctor 08/04/2020 11:00 AM Provider Lolis Plaza MD Department General Internal Medicine [facility] for re-assessment of right rib and INR lab test (2) Fall: Mechanical fall as above with right rib fractures (3) CHF due to valvular disease: Coronary artery disease without angina pectoris -Continue home dose furosemide with potassium supplements, continue aspirin and atorvastatin (4) Rheumatic mitral valve disease: -in the past (5) H/O mitral valve replacement with mechanical valve: -History of mechanical mitral valve replacement -Continue anticoagulation with coumadin (6) Atrial fibrillation: Atrial fibrillation with medical terminologist current use of anticoagulation with coumadin; Presence of Pacemaker -Status post pacemaker placement in the past -continue home dose metoprolol, digoxin History of Depression -continue home dose buproprion DVT prophylaxis: on coumadin CODE STATUS: Full (7) Pacemaker: Admission and Anticipated Discharge Date Admission Date: July 30, 2020 Subjective Patient no longer has nausea and does not require additional pain medications. Patient ready for discharge. Discussed with her the discharge plans and fol lowups Patient continues to be breathing on room air. no shortness of breath. ambulatory. no dizziness. no headache. no anterior chest pain. Patient denies other symptoms Review of Systems Review of Systems: All systems reviewed & are unremarkable except as noted in Subjective Physical Exam Constitutional: cooperative Eyes: PERRL, conjunctivae normal, anicteric sclerae EOM intact bilaterally ENMT: external ear and nose normal, oropharynx normal Neck: normal visual inspection Respiratory: normal respiratory effort Cardiovascular: Rate/Rhythm: regular rhythm and + bradycardic Gastrointestinal (Abdomen): normal bowel sounds, soft, nontender, no hep atosplenomegaly Musculoskeletal: Head/Neck/Chest: normocephalic and head atraumatic Skin: + ecchymosis (mild ecchymosis of right lower flank) Neurologic: PERRL, EOMI, accommodation nl, no face palsy, no dysarthria moves all extremities Psychiatric: A+Ox3, euthymic affect Results & Data Results & Data ([facility]) Vital Signs (Past 12 Hours) Vital Signs Temp Pulse Pulse Resp BP BP Pulse Ox 08/01/20 11:09 36.7 C 65 18 149/81 H 92 08/01/20 08:02 36.7 C 75 20 142/78 H 92 08/01/20 07:21 62 08/01/20 03:50 36.5 C 77 20 127/80 92 08/01/20 00:05 65 (1) Right rib fracture Encounter type: initial encounter Fracture type: closed Rib fracture type: multiple ribs Qualified Code(s): S22.41XA - Multiple fractures of ribs, right side, initial encounter for closed fracture (2) Fall Encounter type: initial encounter Qualified Code(s): W19.XXXA - Unspecified fall, initial encounter
--- NOTE | 2020-08-01 11:47 | Discharge Summary ---
Date of Service August 01, 2020 Admission HPI Per Admitting Provider She is a 59-year-old female with significant past medical history of CAD, chronic diastolic heart failure, rheumatic heart disease with history of mitral valve replacement, atrial fibrillation status post pacemaker on Coumadin and depression apparently had a fall from a chair while reaching an object from an overhead cupboard. She fell on the right side and injured right lateral chest wall mainly. She could manage to get up from the fall and there is no loss of consciousness. She denies any recent fever and/or chills, any chest pain, palpitation or shortness of breath. She denies any abdominal pain, nausea and or vomiting or any problem with urine and her bowel habit. She does not have any increasing leg swelling. Denies any headache and or blurred vision or any numbness and/or tingling involving any of the extremities. CT of the chest showed acute mildly displaced fractures involving the right anterior seventh, 9 and 10th ribs without any pneumo thorax or any solid organ injury. She was having extreme pain with any movement of the right upper extremity. She was admitted for pain control. Principal Diagnosis Multiple closed right rib fractures from mechanical fall and trauma Atrial fibrillation with fpc current use of anticoagulation with coumadin; Presence of Pacemaker Discharge Exam Constitutional cooperative Eyes PERRL, conjunctivae normal, anicteric sclerae EOM intact bilaterally ENMT external ear and nose normal, oropharynx normal Neck normal visual inspection Respiratory normal respiratory effort Cardiovascular Rate/Rhythm: regular rhythm (paced) and + bradycardic Gastrointestinal (Abdomen) normal bowel sounds, soft, nontender, no hepatosplenomegaly Musculoskeletal Head/Neck/Chest: normocephalic and head atraumatic Skin + ecchymosis (mild ecchymosis of right lower flank) Neurologic PERRL, EOMI, accommodation nl, no face palsy, no dysarthria moves all extremities Psychiatric A+Ox3, euthymic affect Discharge Data Allergies Allergy/AdvReac Type Severity Reaction Status Date / Time lisinopril Allergy Unknown Cough Verified 07/30/20 17:43 Consultations 07/30/20 17:02 ED Decision to Admit Stat 07/31/20 06:58 Consult Case Management - Discharge Planning Routine Ordered Studies 07/30/20 14:29 CT abd pelvis IV con only Stat CT chest w con Stat CT head/brain wo con Stat Hospital Course (1) Right rib fracture: Multiple closed right rib fractures from mechanical fall and trauma -as per 07/30/2020 ED notes "The patient is a 59-year-old female who states that about an hour or so ago she was standing on a chair when she lost her balance and fell. She fell about 3 feet landing on the arm of the chair. Her right ribs hit the chair arm. There was no loss of consciousness, she did not hit her head." -CT chest 07/30/2020 Acute mildly displaced fracture of the anterior right seventh rib with subtle acute nondisplaced fractures of the anterior right ninth and 10th ribs. 07/31/2020: Patient has been having a lot of nausea likely from empiric 4 mg dosages of IV morphine ordered by admitting physician at the beginning hospitalization which started on 07/30/2020 in regards to treating pain of rib fractures. Currently patient nausea improving as the day goes by but she is still uncomfortable with nausea and also right lower rib pain. She is breathing on room air and oxygenating well. She has been ambulatory. She is encouraged to use the incentive spirometer but she also reports more rib pain when taking deep breaths. -07/31/2020 stopped morphine because of excessive nausea side effects, continued prn acetaminophen or prn oxycodone for now for pain control, prn zofran for nausea, give bowel regimen 08/01/2020: Patient no longer has nausea and does not require additional pain medications. Patient ready for discharge. Discussed with her the discharge plans and followups discharge to home discharge medication of acetaminophen 325 mg every 4 hours as needed for pain sent electronically to [address] INR is 3.4 on 08/01/2020. Patient advised to hold off home dose coumadin on 08/01/2020. Patient can go get INR check at coumadin clinic on 08/02/2020 versus continuing palmer dose coumadin and follow up with primary care doctor for INR check Patient should follow up with primary care doctor 08/04/2020 11:00 AM Provider Lolis Plaza MD Department General Internal Medicine [facility] for re-assessment of right rib and INR lab test (2) Fall: Mechanical fall as above with right rib fractures (3) CHF due to valvular disease: Coronary artery disease without angina pectoris -Continue home dose furosemide with potassium supplements, continue aspirin and atorvastatin (4) Rheumatic mitral valve disease: -in the past (5) H/O mitral valve replacement with mechanical valve: -History of mechanical mitral valve replacement -Continue anticoagulation with coumadin (6) Atrial fibrillation: Atrial fibrillation with fpc current use of anticoagulation with coumadin; Presence of Pacemaker -Status post pacemaker placement in the past -continue home dose metoprolol, digoxin History of Depression -continue home dose buproprion DVT prophylaxis: on coumadin CODE STATUS: Full (7) Pacemaker: Total Time Total Time Spent Total Time Spent (In Minutes): 40 minutes Total Time Includes: Examination of the Patient, Discharge Planning, Medication Reconciliation and Communication With Other Providers Discharge Plan Discharge Items Patient Disposition: Home - Self-Care Reason For Visit: FALL,RT RIBS FRACTURE Discharge Diagnosis: Multiple closed right rib fractures from mechanical fall and trauma Atrial fibrillation with fpc current use of anticoagulation with coumadin; Presence of Pacemaker Condition on Discharge: Good Activity: Per Instructions section Lifting: Gradually increase as tolerated Bathing: No limitations Exercise/Sports: Gradually increase as tolerated Driving/Machine Use: No limitations Weightbearing: Full weightbearing Non-emergency contact: Primary Care Provider Call non-emergency contact if: you have any medication questions Follow-up/Referrals: Lolis Plaza MD [Primary Care Provider] - Diet: Carb Consistent or DM2 Addtl Attending Provider Instructions: discharge to home discharge medication of acetaminophen 325 mg every 4 hours as needed for pain sent electronically to [facility] [address] [place] [address] INR is 3.4 on 08/01/2020. Patient advised to hold off home dose coumadin on 08/01/2020. Patient can go get INR check at coumadin clinic on 08/02/2020 versus continuing palmer dose coumadin and follow up with primary care doctor for INR check Patient should follow up with primary care doctor 08/04/2020 11:00 AM Provider Lolis Plaza MD Department General Internal Medicine [facility] for re-assessment of right rib and INR lab test Pending Studies at Discharge: No Stand-Alone Forms: My [employer], Smoking Cessation Medications and DC Order Prescriptions: New acetaminophen 325 mg tablet 325 mg PO Q4H PRN (Reason: fever or pain) 5 Days Qty: 30 RF: 0 Continued metoprolol succinate 100 mg tablet extended release 24 hr 100 mg PO BID Qty: 180 RF: 0 warfarin 5 mg tablet 5 mg PO 5XWK Qty: 45 RF: 0 furosemide 20 mg tablet 20 mg PO 6XWK Qty: 30 RF: 0 potassium chloride 20 mEq tablet extended release 20 meq PO 6XWK Qty: 90 RF: 0 amoxicillin 500 mg tablet 2,000 mg PO ONCE PRN (Reason: DENTAL APPOINTMENT) Qty: 4 RF: 0 aspirin 81 mg tablet,chewable 1 tab PO DAILY RF: 0 bupropion HCl 300 mg tablet extended release 24 hr 300 mg PO DAILY RF: 0 digoxin [Digitek] 125 mcg (0.125 mg) tablet 125 mcg PO DAILY RF: 0 warfarin 5 mg Tablet 2.5 mg PO 2XWK RF: 0 furosemide 20 mg Tablet 40 mg PO WK RF: 0 bupropion HCl 150 mg tablet extended release 24 hr 150 mg PO DAILY RF: 0 potassium chloride 20 mEq tablet,ER particles/crystals 40 meq PO WK RF: 0 losartan 25 mg tablet 12.5 mg PO QPM RF: 0 atorvastatin 40 mg tablet 40 mg PO QPM RF: 0 Discontinued acetaminophen [Tylenol Arthritis] 650 mg Tablet Extended Release 650 mg PO Q8H PRN (Reason: Pain) RF: 0 Discharge Orders: Discharge Order (Routine); Ordered 08/01/20 Ordered By: David Rios Admission Data Admit Date/Time: 07/30/20 17:33 Attending Provider: David Rios Admit Provider: Haroldo Multani Primary Care Provider: Lolis Plaza Other Providers: Haroldo Multani
[2020-08-01] MEDS: oxyCODONE HCL IR 5 MG TAB (IMMEDIATE RELEASE) PO PRN (12:42)
[2020-08-01] MEDS: ONDANSETRON INJ 2 MG/ML 2 ML VIAL IV PRN (12:43)
[2020-08-01 15:18] VITALS: PULSE 66
== END 2020-08-01 15:59 | disposition home or self-care (01) ==
LOC: 2W 13:59 → ED 13:59 → SUATTDRO 17:33 → 2W 18:11